=== PATIENT | female | born 1985 | race Caucasian/White ===

== ENCOUNTER 2025-07-01 09:00 | Emergency (ER) | payer SELFPAY ==
[~2025-07-01] VITALS: Ht 170.2 cm; Wt 63.0 kg
[2025-07-01 09:06] VITALS: BP 146/103; PULSE 128; RESP 16; TEMP 97.8; O2SAT 98
== END 2025-07-01 09:37 | disposition left against medical advice (07) ==
LOC: ER 09:25
DX: R45.1 Restlessness and agitation (principal)
CPT/HCPCS: 99283